=== PATIENT | female | born 1965 | race Two or more races ===

== ENCOUNTER 2021-02-16 18:37 | Inpatient (IN) | payer MEDICARE, MEDICAID ==
[~2021-02-16] VITALS: Ht 160 cm; Wt 61.8 kg
[~2021-02-16 18:37] MED LIST: ASPI-1497 MT; ATOR40TA70 MT; CLOP75TA33 MT; DICY20TA11 MT; DOCU-138 MT; HYDR-4346 MT; INSU100I24 SQ; LINA5TAB MT; LISI10TA26 MT; NITR100C MT; POLY17PO3 MT; PROT40 MT
[2021-02-16 19:17] LABS: BASOPHILS % 0.7 % (0.0-2.0); HEMATOCRIT. 38.2 % (36.0-48.0); HEMOGLOBIN. 13.4 g/dL (12.0-16.0); LYMPHOCYTES % 28.5 % (20.0-50.0); MEAN CORPUSCULAR HEMOGLOBIN 30.4 pg (28.0-32.0); MEAN CORPUSCULAR VOLUME 86.9 fL (81.0-99.0); MEAN PLATELET VOLUME 9.4 fl (7.4-10.4); MONOCYTES % 8.9 % (2.0-8.0); NEUTROPHILS % 60.9 % (40.0-76.0); PLATELET 227 x1000/uL (130-400); RED CELL DISTRIBUTION WIDTH 13.7 % (11.6-14.6)
[2021-02-16 19:22] LABS: CHLORIDE 107 mEq/L (98-107)
[2021-02-16 19:24] LABS: PROTHROMBIN TIME 10.7 sec (9.6-11.0)
[2021-02-16] MEDS ORDERED: ONDANSETRON HCL 4MG/2ML INJ IV STA (19:52)
[2021-02-16] MEDS ORDERED: MORPHINE SULFATE 4 MG/ML CPJ (NOT FOR IM USE) IV STA (19:52)
[2021-02-16] MEDS ORDERED: HYDROMORPHONE HCL/PF 2MG/ML CPJ IV ONE (22:00)
[2021-02-16] MEDS ORDERED: NA PHOS,M-B/NA PHOS,DI-BA ENEMA 118ML PR NR (23:15)
[2021-02-16 23:35] LABS: CLARITY URINE TURBID (CLEAR); COLOR URINE YELLOW (YELLOW); KETONES URINE NEGATIVE (NEGATIVE); LEUKOCYTE ESTERASE URINE 3+ (NEGATIVE); NITRITE URINE NEGATIVE (NEGATIVE); OCCULT BLOOD URINE 3+ (NEGATIVE); PH URINE 5.5 (4.5-8.0); PROTEIN URINE 2+ (NEGATIVE); SPECIFIC GRAVITY URINE 1.018 (1.005-1.030)
[2021-02-17] MEDS: HYDROMORPHONE HCL/PF 2MG/ML CPJ IV PRN ×2 (02:58→09:43)
[2021-02-17] MEDS ORDERED: NALOXONE HCL 0.4MG/ML VIAL IV PRN ×2 (03:00→15:45)
[2021-02-17] MEDS ORDERED: ONDANSETRON HCL 4MG/2ML INJ IV PRN (03:00)
[2021-02-17] MEDS ORDERED: PANTOPRAZOLE 40MG DR TABLET PO SCH (07:50)
[2021-02-17 09:03] VITALS: BP 138/95
[2021-02-17] MEDS ORDERED: LACTULOSE 20G/30ML UDC PO NR (10:30)
[2021-02-17 11:03] VITALS: BP 133/81
[2021-02-17] MEDS ORDERED: LEVOFLOXACIN 500MG PREMIX 100 ML IV NR (13:00)
[2021-02-17 15:26] VITALS: BP_SYST 131; BP_SYST 138; BP_DIAS 66; BP_DIAS 90
[2021-02-17] MEDS ORDERED: NA PHOS,M-B/NA PHOS,DI-BA ENEMA 118ML PR NR (15:45)
[2021-02-17] MEDS: HYDROCODONE/ACETAMINOPHEN 5/325MG TABLET PO PRN ×2 (15:56→22:12)
[2021-02-17] MEDS ORDERED: LEVO500T89 MT (18:27)
[2021-02-17 18:28] VITALS: BP 138/80
[2021-02-17 20:00] VITALS: BP 179/109
[2021-02-17] MEDS ORDERED: CLONIDINE 0.1MG TABLET PO PRN (22:15)
[2021-02-18] MEDS ORDERED: LEVOFLOXACIN 250MG PREMIX 50 ML IV SCH (11:00)
== END 2021-02-17 22:30 | DRG 690 ==
LOC: ER 18:37 → 6WST 23:52 → ENRESERV 02-17 07:25
PROVIDERS: ADMIT Internal Medicine; ATTEND Internal Medicine
DX: N39.0 Urinary tract infection, site not specified (principal); E44.0 Moderate protein-calorie malnutrition; I69.954 Hemiplegia and hemiparesis following unspecified cerebrovascular disease affecting left non-dominant side; E11.9 Type 2 diabetes mellitus without complications; F17.200 Nicotine dependence, unspecified, uncomplicated; I10 Essential (primary) hypertension; Z96.659 Presence of unspecified artificial knee joint; K56.41 Fecal impaction; K58.9 Irritable bowel syndrome, unspecified; Z93.3 Colostomy status; Z98.891 History of uterine scar from previous surgery; Z68.24 Body mass index [BMI] 24.0-24.9, adult; Z88.0 Allergy status to penicillin; Z88.2 Allergy status to sulfonamides; Z88.8 Allergy status to other drugs, medicaments and biological substances; Z79.82 Long term (current) use of aspirin; Z79.899 Other long term (current) drug therapy; Z90.49 Acquired absence of other specified parts of digestive tract; I69.941 Monoplegia of lower limb following unspecified cerebrovascular disease affecting right dominant side
CPT/HCPCS: 36415; 71045; 74176; 80053; 81003; 83880; 84484; 85025; 87077; 87186; 93005; 99285; J1170; J1956; J2270; J2405; J7040